=== PATIENT | female | born 2000 | race Caucasian/White ===

== ENCOUNTER 2024-09-01 11:31 | Inpatient (IN) | payer BC, SELFPAY ==
[2024-08-31 20:23] VITALS: BP 121/73
[2024-08-31 20:44] LABS: Urine Character Clear (Clear)
[2024-08-31 20:47] LABS: Hematocrit 38.8 % (37.0-47.0); Hemoglobin 13.0 g/dL (12.0-16.0); Mean Corp Hgb Conc. 33.5 g/dL (33.0-37.0); Mean Corpuscular Volume 89.8 fL (81.0-99.0); Nucleated Red Blood Cells % 0 %; Platelet Count 442 10^3/uL (130-400); Red Cell Dist. Width 14.3 % (11.5-14.5)
[2024-08-31 20:51] LABS: Urine Squamous Cell >30 /LPF (Few)
[2024-08-31 20:59] LABS: ALT (SGPT) 25 U/L (0-35); AST (SGOT) 65 U/L (14-36); Albumin 5.1 g/dl (3.5-5.0); Alkaline Phosphatase 53 U/L (38-126); Blood Urea Nitrogen 13 mg/dl (7-17); Calcium 10.4 mg/dl (8.4-10.2); Carbon Dioxide 25 mmol/L (22-30); Chloride 106 mmol/L (98-107); Glucose 108 mg/dl (70-99); Potassium 5.1 mmol/L (3.5-5.1); Sodium 139 mmol/L (135-145); Total Protein 8.1 g/dl (6.3-8.2); eGFR > 60.00
[2024-08-31 22:40] VITALS: BP 121/71
[2024-08-31 23:00] VITALS: BP 110/80
[2024-08-31] MEDS: ROCEPHIN IV (23:04)
[2024-08-31] MEDS: NSS 2000 ML IV (23:04)
[2024-08-31] MEDS: ZOFRAN 4 MG IV (23:05)
[2024-08-31] MEDS: TORADOL 30 MG IV (23:05)
[2024-08-31 23:29] VITALS: BP 110/53
[2024-08-31 23:40] VITALS: BP 117/77
[2024-08-31] MEDS: ROCEPHIN 1000 MG IV (23:44)
--- NOTE | 2024-08-31 23:48 | ED.GENMED ---
History of Present Illness
General
Chief Complaint: Urinary Symptoms
Source: patient
Time Seen by Provider: 08/31/24 22:24
History of Present Illness
History of Present Illness:
24-year-old female with past medical history of frequent urinary tract infections, currently in the process of being worked up by urology, presenting to the ER for evaluation of urinary frequency/urgency and dysuria, today started develop more
right-sided flank pain, nausea and fevers prompting her to come to the ER for further evaluation. Patient has not been on any antibiotics, notes that she has had multiple imaging studies but with no specific etiolgies found. Patient last took 1 g
of Tylenol at 4 PM which did give her some relief from the fever but states it feels as if the fever started to come back. She notes that she has additional testing scheduled for this coming Wednesday.
Past History
Past History
ED Past Medical History: Other (Frequent urinary tract infections)
ED Past Surgical History: None
Social History
Tobacco: Non-smoker
Alcohol: Occasional
Drug: None
Personal: Single
Living: with family
Review of Systems
Review of Systems
All Other Systems: ROS reviewed and negative except as documented in HPI and ROS
Phy Exam
Physical Exam
Physical Exam:
GENERAL: Alert , in no apparent distress
EYE: clear conjunctiva b/l
HEAD: NCAT
ENT: o/p clr, mmm.
CARDIAC: Regular rate and rhythm .
LUNGS: Clear breath sounds bilaterally, no acute respiratory distress, no wheezes/rales/rhonchi
ABDOMEN: Soft, without focal tenderness, no r/g, mild right-sided CVA tenderness
NEUROLOGICAL: Alert and oriented
SKIN: Warm and dry, skin intact.
MUSCULOSKELETAL: No edema, well perfused.
PSYCH: Normal and appropriate interaction.
Course
Orders/Labs/Results
Orders:
Orders
08/31/24 20:35
CBC/With Diff [Complete Blood Count/With Diff] Urgent
CMP [Comprehensive Metabolic Panel] Urgent
HCG, Serum Qualitative Screen Urgent
Comment: ADD ON
Urinalysis Reflex To Culture Urgent
Date Specimen was Collected: 08/31/24
Time Specimen was Collected: 20:27
Urine Microscopic Reflex Cult Urgent
Urine Culture Urgent
ERMELINDA Source: U
Specimen Description:
Date Specimen was Collected: 08/31/24
Time Specimen was Collected: 20:27
08/31/24 22:41
CefTRIAXone [Rocephin] 1,000 mg IV NOW STA
US Kidneys [US Renal Only W/O Bladder] Urgent
Comment:
Reason For Exam: flank pain, fever, UTI
08/31/24 22:42
0.9% Sodium Chloride 1000 ml [Nss] 2,000 ml IV NOW STA
Ketorolac [Toradol] 30 mg IV NOW STA
Ondansetron Injectable [Zofran] 4 mg IV NOW STA
08/31/24 22:54
Sterile Water [Sterile Water For Injection] 10 ml .ROUTE .[facility]
08/31/24 23:01
Lactic Acid Q4H
Comment: CANCEL 2nd LACTIC ACID IF 1st LACTIC ACID IS LESS THAN 2
Blood Culture Q30M
ERMELINDA Source: Blood/Venous
Specimen Description:
08/31/24 23:02
Blood Culture Q30M
ERMELINDA Source: Blood/Venous
Specimen Description:
08/31/24 23:49
Add On- LAB Urgent
Tests Added?: hcg qual
08/31/24 23:51
Phenazopyridine HCl [Pyridium] 200 mg PO NOW STA
09/01/24 02:45
Lactic Acid Q4H
Comment: CANCEL 2nd LACTIC ACID IF 1st LACTIC ACID IS LESS THAN 2
Abnormal Lab Results
08/31/24
20:35
WBC 17.6 H 10^3/uL
(4.8-10.8)
Plt Count 442 H 10^3/uL
(130-400)
Abs Immat Gran (auto) 0.1 H 10^3/uL
(0-0.05)
Absolute Neuts (auto) 14.6 H 10^3/uL
(1.4-6.5)
Absolute Monos (auto) 1.3 H 10^3/uL
(0.1-0.6)
Neutrophils % 83.0 H %
(42.2-75.2)
Lymphocytes % 8.8 L %
(20.5-51.1)
Glucose 108 H mg/dl
(70-99)
Calcium 10.4 H mg/dl
(8.4-10.2)
AST 65 H U/L
(14-36)
Albumin 5.1 H g/dl
(3.5-5.0)
Leukocyte Esterase Rfl 1+ A
(Negative)
Urine RBC 3-6 A /HPF
(0-2)
Urine Bacteria (Reflex) Few A
(Negative)
08/31/24 20:35
08/31/24 20:35
Vital Signs
Initial and Last Documented VS:
Initial Vital Signs
Temp Pulse Resp BP Pulse Ox
100.4 F H 102 15 121/73 96
08/31/24 20:23 08/31/24 20:23 08/31/24 20:23 08/31/24 20:23 08/31/24 20:23
Last Documented Vital Signs
Temp Pulse Resp BP Pulse Ox
102.5 F H 105 18 110/80 100
08/31/24 22:40 08/31/24 23:00 08/31/24 23:00 08/31/24 23:00 08/31/24 23:49
MDM/Problems Addressed
Differential Diagnosis Includes:
- Pyelonephritis
- Cystitis
- Interstitial cystitis
- PID
- STI
-
- Appendicitis
- Renal/ureteral colic-
MDM/Problems Addressed:
24-year-old female presenting to the ER for evaluation of right-sided flank pain accompanied with urinary symptoms. History of similar urinary tract infections in the past. Currently being worked up as an outpatient by urology. Patient arrives to
the ER febrile. Labs and urine were initiated on arrival which show significant leukocytosis with leftward shift. Normal renal function. Negative test. Urine with 1+ leuks but only 3-5 WBCs. Patient has had multiple CT scans, would
like to avoid further radiation so will obtain ultrasound to evaluate for any hydronephrosis or any proximal stones. Will initiate patient on IV Rocephin. Plan for admission
Chronic conditions affecting care: Other (1 urinary tract infections)
Acute Exacerbation and/or Progression of Chronic Illness: Other (Frequent UTI)
*Radiology
Radiology exam reviewed: radiology read reviewed
*Pulse Oximetry
SaO2: 100
Oxygen Mode of Delivery: Room air
Patient hypoxic: no
*Critical Care Note
Total Time (30-74mins, 75-104mins- exclusive of procedures): Not Applicable
Patient Management
Discussion with other providers: Hospitalist
Escalation/DeEscalation of care consider admission/obs:
Ultrasound without any significant findings. Hospitalist team notified and accepts for continued evaluation and treatment. Patient does appear improved following medications provided.
ED Attending Note
-
Portions of this chart may have been created with voice recognition software.� Occasional wrong word or��sound alike� substitutions may have occurred due to the inherent limitations of voice recognition software.
Discharge Plan
Departure
Patient Disposition: Admit
Date of Disposition: 08/31/24
Time of Disposition: 23:48
Presentation/result/management discussed w/ accepting MD/DO: Hospitalist
Discharge Problem:
Pyelonephritis
Prescriptions:
No Action
spironolactone 50 mg Tablet
50 mg PO DAILY
Rinvoq 30 mg Tablet Extended Release 24 Hr
30 mg PO DAILY
Interventions
Interventions:
*Risk Screen - Suicide Last Done: 08/31/24 20:23
*General Assessment Last Done: 08/31/24 20:23
*Neglect/Abuse Screening Last Done: 08/31/24 20:23
*ED COVID-19 Vaccine History Last Done: 08/31/24 20:23
Discharge Date and Time
Print Language: ARMENIAN
[2024-09-01] VITALS (8 sets, daily range): BP systolic 92–131; BP diastolic 49–84; BMI 21.1
[2024-09-01 00:27] LABS: HCG, Serum Qualitative Screen Negative
--- NOTE | 2024-09-01 01:34 | HPS.HSE ---
Family Physician
-
Family Physician:
Chief Complaint
-
Urinary Frequency, Flank Pain, Fevers / Chills
History of Present Illness
Patient is a 24y F with PMH significant for ulcerative colitis who presents to ED complaining of R flank discomfort, urinary frequency / urgency and fevers / chills. Patient states that she has had frequent UTIs over the past year or so. She
has been evaluated extensively at [facility] including prior CT Urogram, cystoscopy, etc. Reportedly no clear etiology was discovered. Patient states that she always has R flank discomfort. This tends to wax and wane and seems related to urinary habits
(worse if she is 'holding it in', etc).
Patient notes that she developed shaking chills, sweats, fevers and nausea around 11AM today. Her R flank pain significantly increased.
These symptoms persisted throughout the day and she presented to the ED for further evaluation.
Patient describes constant burning in the genital area - not solely with urination. She reports frequent urge to urinate with only small volume urination.
Patient notes that she is scheduled to see Dr. Schaffer next week for further evaluation.
Medical History
Past Medical History
Past Medical History: Reports Other
Additional Past Medical History:
Ulcerative Colitis
PCOS
Past Surgical History: Reports None
Social History
Tobacco: Vaping (Occasional smoker / vape use.)
Alcohol: Occasional
Drug: None
Family History
Family History: Other (Uncle with renal failure.)
Allergies / Home Medications
Allergies reflects when Allergies were last updated in [employer] [facility].
Home Medications with original date entered in [employer] [facility]
Allergy/Medication List:
Allergies
Allergy/AdvReac Type Severity Reaction Status Date / Time
Iodinated Contrast Media Allergy Intermediate Hives Verified 08/31/24 20:27
Home Medications
spironolactone 50 mg tablet 50 mg PO DAILY 08/31/24
upadacitinib 30 mg tablet,extended release 24 hr (Rinvoq) 30 mg PO DAILY 08/31/24
Review of Systems
-
History Source: Patient
A 12 point ROS was completed and negative except as noted: Yes
Constitutional: Reports Fever, Fatigue and Chills
EENT: Denies Sore Throat
Respiratory: Denies Cough or Trouble Breathing
Cardiac: Denies Chest Pain or Palpitations
Abdomen/GI: Reports Nausea; Denies Abdominal Pain, Vomiting, Diarrhea, Constipated, Bloody Stools, Black Stools or Anorexia
: Reports Dysuria, Frequency, Flank Pain and Urgency; Denies Bleeding, Dark Urine or Discharge
Musculoskeletal: Denies Joint Pain or Edema
Neurological: Denies Dizzy or Headache
Physical Exam
Vital Signs
Vital Signs
Temp Pulse Resp BP Pulse Ox
102.5 F H 105 18 115/72 98
08/31/24 22:40 08/31/24 23:00 09/01/24 00:00 09/01/24 00:00 09/01/24 00:00
Physical Exam
General: Other (24y F in no distress.)
HEENT: Moist mucous membranes and PERRLA
Respiratory: Clear; No Wheezes, Rales or Rhonchi
Cardiac: S1/S2 and Regular Rhythm; No Murmur
GI: Soft, Non Tender, Non Distended and Normal Bowel Sounds
Genito-urinary: No costovertebral tender
Musculoskeletal: No Clubbing, No Cyanosis and No Edema
Neuro: AO x 3
Laboratory Results
-
08/31/24 20:35
08/31/24 20:35
Laboratory Results
Lactic Acid Cancelled 09/01/24 02:45
Total Bilirubin 0.4 mg/dl (0.2-1.3) 08/31/24 20:35
AST 65 U/L (14-36) H 08/31/24 20:35
ALT 25 U/L (0-35) 08/31/24 20:35
Alkaline Phosphatase 53 U/L (38-126) 08/31/24 20:35
Impression/Plan
-
A/P: Patient is a 24y F with PMH significant for UC who presents to ED complaining of fevers / chills, 'urinary symptoms' since this AM.
Febrile Illness / Sepsis
- Admit for further evaluation and treatment.
- Patient presents with fever, tachycardia, tachypnea and leukocytosis.
- Source / underlying etiology is not clear at this time.
- R flank discomfort, but no CVAT.
- UA not suggestive of active infection despite symptoms.
- Notes genital burning constantly - not only with urination.
- Continue IV ceftriaxone pending culture data / further evaluation.
- US done in the ED unremarkable with no abnormal appearance of the kidneys.
- Follow-up culture data. Check GC/chlamydia
- Send to [facility] for records.
- ID evaluation for additional recommendations.
Ulcerative Colitis
- Stable with no recent diarrhea, bloody / mucousy stools, etc.
- Hold Rinvoq acutely pending infectious work-up.
- ? if chronic pain symptoms, etc may be due to UC inflammation / changes?
- Check ESR. Consider additional abdominal imaging (though reportedly has had multiple imaging studies done within the past year).
- Send to [facility] for records as noted above.
PCOS
- Stable. Hold spironolactone acutely.
DVT Prophylaxis: Lovenox
Code Status: Full
[2024-09-01] MEDS: TYLENOL 650 MG PO ×2 (02:59→16:40)
[2024-09-01] MEDS: NSS 1000 IV ×3 (02:59→18:20)
--- NOTE | 2024-09-01 03:33 | PTCARENOTE ---
Patient arrived from the ED via stretcher at approximately 0245. Patient ambulated self from stretcher to bed - gait steady. Patient AAOx3. VSS as documented. Assessment as documented. Patient oriented to room. Bed in lowest position. Call patricio
within reach.
[2024-09-01] MEDS: COMPAZINE 5 MG IV (05:57)
[2024-09-01] MEDS: TORADOL 10 MG IV (05:57)
[2024-09-01 07:24] LABS: Hematocrit 34.7 % (37.0-47.0); Hemoglobin 11.6 g/dL (12.0-16.0); Mean Corp Hgb Conc. 33.4 g/dL (33.0-37.0); Mean Corpuscular Volume 89.2 fL (81.0-99.0); Platelet Count 407 10^3/uL (130-400); Red Cell Dist. Width 14.5 % (11.5-14.5)
[2024-09-01 08:00] LABS: Blood Urea Nitrogen 8 mg/dl (7-17); Calcium 9.0 mg/dl (8.4-10.2); Carbon Dioxide 19 mmol/L (22-30); Chloride 110 mmol/L (98-107); Estimated Creatinine Clearance > 125 ml/min; Glucose 138 mg/dl (70-99); Potassium 3.7 mmol/L (3.5-5.1); Sodium 138 mmol/L (135-145); eGFR > 60.00
--- NOTE | 2024-09-01 10:39 | CON.ID ---
Consultation
-
Date/Time Consultation Requested: 09/01/24 0248
Date/Time Consultation Performed: 09/01/2024 1016
Requesting Provider: Dr. Pringle
Performing Provider: Dr. Ni
Reason for Consultation: Urinary tract infection
Chief Complaint / Past History
History of Present Illness
Sarah Sanchez is a 24-year-old female being evaluated at the request of Dr. Pringle in regards to urinary tract infection/dysuria. History is obtained from chart review, along with patient interview.
The patient reports that over the past year she has been having recurrent urinary tract infections and has had significant workup at [facility]. Most recently, she was seen in her urologist office approximately 1 month ago, and reports UA findings
suggested UTI and she was prescribed Macrodantin, but did not fill it.
She reports approximately 48 hours of increasing dysuria, burning and urgency. She notes yesterday at approximately 11 AM she developed a fever to 103 degrees. Additionally, she notes some ongoing right flank discomfort, but that has been
persistent for the past year. She notes that she was scheduled to be evaluated by Dr. Schaffer next week.
Currently she admits to some headache. She denies any nausea, vomiting or diarrhea. She notes urinary burning is constant.
No significant travel history.
Past History
Additional Past Medical History:
Acne (on spironolactone)
Recurrent urinary tract infections
Ulcerative colitis (on Rinvoq)
Additional Past Surgical History:
D&C
Allergy History:
Iodinated Contrast Media Allergy (Intermediate, Verified 08/31/24 20:27)
Hives
Medications Reviewed: Yes
Current Antibiotics:
Ceftriaxone 1 g IV every 24 hours
Social History
Tobacco: Other (Occasional)
Alcohol: Occasional
Drug: None
Personal: Single (Has boyfriend)
Living: With Family
Employment: Employed
Family History
Family History: Not Pertinent
Review of Systems
Vital Signs
Temp Pulse Resp BP Pulse Ox
98.9 F 81 20 92/49 95
09/01/24 07:05 09/01/24 07:05 09/01/24 07:05 09/01/24 07:05 09/01/24 07:05
Physical Exam
Physical Exam
Constitutional: No Acute Distress, Comfortable and Non-toxic
Eyes: Pupils Equal, Pupils Round, No Conjunctival Hemorrhage and Sclera Anicteric
Oral: No Thrush and No Ulcers
Cardiovascular: Regular Rate and S1/S2; Negative S3/S4
Pulmonary: Clear; Negative Wheezes, Rales or Rhonchi
Gastrointestinal: Soft, Non Tender, Non Distended, Normal Bowel Sounds, No Rebound and No Guarding
Genito-Urinary: Negative Alexander or CVA Tenderness
Extremities: Negative Edema, Cyanosis or Erythema
Skin: Warm and Dry; Negative Rash or Jaundice
Neurological: Awake and Alert
Psychological: Calm
Lab / Diagnostic Study Results
09/01/24 07:04
09/01/24 07:04
Abs Immat Gran (auto) 0.1 10^3/uL (0-0.05) H 08/31/24 20:35
Absolute Neuts (auto) 14.6 10^3/uL (1.4-6.5) H 08/31/24 20:35
Absolute Lymphs (auto) 1.6 10^3/uL (1.2-3.4) 08/31/24 20:35
Absolute Monos (auto) 1.3 10^3/uL (0.1-0.6) H 08/31/24 20:35
Absolute Basos (auto) 0.0 10^3/uL (0-0.2) 08/31/24 20:35
Immature Gran % 0.5 % (0-0.5) 08/31/24 20:35
Neutrophils % 83.0 % (42.2-75.2) H 08/31/24 20:35
Lymphocytes % 8.8 % (20.5-51.1) L 08/31/24 20:35
Monocytes % 7.2 % (1.7-9.3) 08/31/24 20:35
Eosinophils % 0.3 % (0-6) 08/31/24 20:35
Basophils % 0.2 % (0-2) 08/31/24 20:35
ESR 6 mm/hour (0-20) 09/01/24 07:04
Lactic Acid Cancelled 09/01/24 02:45
Ur Squamous Epith Cells >30 /LPF (Few) 08/31/24 20:35
Microbiology Results
Micro:
09/01/24 20:35 Chlamydia trachomatis (PCR) - Final
Urine Neisseria gonorrhoeae (PCR) - Final
08/31/24 23:01 Blood Culture - Pending
Blood/Venous
08/31/24 23:02 Blood Culture - Pending
Blood/Venous
08/31/24 20:35 Urine Culture - Pending
Urine
Imaging:
08/31/2024 Renal ultrasound: No hydronephrosis. No evidence of renal calculus.
Assessment / Plan
Dysuria with hx recurrent UTI
Leukocytosis
Fever
Hx ulcerative colitis
Recommendations:
Continue with empiric ceftriaxone for the present.
Await urine culture.
Follow white count and temperature curve.
Follow for clinical improvement.
Further recommendations as additional data is returned.
--- NOTE | 2024-09-01 10:40 | W.PN.HOSP.TC ---
Addendum entered and electronically signed by Prashant Munoz MD 09/01/24 11:09:
abdomen US meant for outpatient in 3months
Original Note:
Today's Communication/Plan
-
Monitor vital signs see plan
Abdominal ultrasound
Follow fever curve
ID evaluation
Continue with ceftriaxone for now
Follow cultures
Procal
Nonbillable note
Assessment / Plan
Assessment / Plan
General: No acute distress
HEENT: Moist mucous membranes and PERRLA
Respiratory: Clear; No Wheezes, Rales or Rhonchi
Cardiac: S1/S2 and Regular Rhythm; No Murmur
GI: Soft, Non Tender, Non Distended and Normal Bowel Sounds
Genito-urinary: No costovertebral tender
Musculoskeletal: No Edema
Neuro: AO x 3
Febrile Illness / Sepsis
- Patient presents with fever, tachycardia, tachypnea and leukocytosis.
- Source / underlying etiology is not clear at this time.
- R flank discomfort, but no CVAT.
- UA not suggestive of active infection despite symptoms. Has seen urology outpatient. Scheduled for urodynamic study
- Notes genital burning constantly - not only with urination. has seen services engineer outpt
- Continue IV ceftriaxone pending culture data / further evaluation.
- US done in the ED unremarkable with no abnormal appearance of the kidneys. Does show gallbladder polyp, check abdominal ultrasound.
- Follow-up culture data. Check GC/chlamydia neg
- awaiting records from [facility]
- ID evaluation for additional recommendations
No cough, shortness of breath
check procal
consider CT abd/pelvis if sx dont improve
Ulcerative Colitis
- Stable with no recent diarrhea, bloody / mucousy stools, etc.
- Hold Rinvoq acutely pending infectious work-up. Rinvoq can also be associated with fever and urinary symptoms
- ? if chronic pain symptoms, etc may be due to UC inflammation / changes?
- Check ESR wnl. Consider additional abdominal imaging (though reportedly has had multiple imaging studies done within the past year).
- Send to [facility] for records as noted above.
PCOS
- Stable. Hold spironolactone acutely.
DVT Prophylaxis: Lovenox
Code Status: Full
Anticipated Discharge: 24 - 48 hours
Subjective/Interval History
-
Date of Service: September 01, 2024
Denies pain
Objective Data
-
Labs:
Laboratory Results
09/01/24
07:04
WBC 14.7 H
Hgb 11.6 L
Hct 34.7 L
Plt Count 407 H
Sodium 138
Potassium 3.7 D
Chloride 110 H
Carbon Dioxide 19 L
BUN 8
Creatinine 0.6
Glucose 138 H
Calcium 9.0
Vital Signs:
Vital Signs
Temp Pulse Resp BP Pulse Ox
98.9 F 81 20 92/49 95
09/01/24 07:05 09/01/24 07:05 09/01/24 07:05 09/01/24 07:05 09/01/24 07:05
I&O
08/31/24 09/01/24 09/02/24
06:59 06:59 06:59
Intake Total 2640 / 2640
Balance 2640 / 2640
[2024-09-01 13:20] LABS: Procalcitonin 0.05 ng/ml (0.0-0.25)
--- NOTE | 2024-09-01 13:49 | CM ---
Reviewed the chart notes and spoke with the patient at the bedside. The patient resides with her mother in a two story home with no steps to enter. The patient reports no DME/VN/SNF in the past. Patient confirmed her pharmacy of choice is [facility]. CM continues to be available to patient/family and is monitoring medical plan for needs at discharge.
Plan: Discharge to home when medically stable. No needs anticipated.
[2024-09-01 19:41] LABS: COVID-19 Antigen Negative (Negative)
[2024-09-01] MEDS: STERILE WATER FOR INJECTION 10 ML IV (21:20)
[2024-09-01] MEDS: ROCEPHIN 1000 MG IV (21:21)
[2024-09-01] MEDS: FLUSH (NSS) 2 FLUSH IV (21:21)
[2024-09-02] MEDS: NSS 1000 IV ×2 (03:19→11:22)
[2024-09-02 07:48] VITALS: BP 112/70
[2024-09-02] MEDS: TYLENOL 650 MG PO (07:57)
[2024-09-02 08:06] LABS: Hematocrit 35.4 % (37.0-47.0); Hemoglobin 11.7 g/dL (12.0-16.0); Mean Corp Hgb Conc. 33.1 g/dL (33.0-37.0); Mean Corpuscular Volume 90.1 fL (81.0-99.0); Nucleated Red Blood Cells % 0 %; Platelet Count 407 10^3/uL (130-400); Red Cell Dist. Width 14.7 % (11.5-14.5)
[2024-09-02 08:40] LABS: ALT (SGPT) 61 U/L (0-35); AST (SGOT) 90 U/L (14-36); Albumin 4.0 g/dl (3.5-5.0); Alkaline Phosphatase 65 U/L (38-126); Blood Urea Nitrogen 3 mg/dl (7-17); Calcium 9.1 mg/dl (8.4-10.2); Carbon Dioxide 21 mmol/L (22-30); Chloride 110 mmol/L (98-107); Estimated Creatinine Clearance > 125 ml/min; Glucose 122 mg/dl (70-99); Potassium 4.0 mmol/L (3.5-5.1); Sodium 138 mmol/L (135-145); Total Protein 6.6 g/dl (6.3-8.2); eGFR > 60.00
--- NOTE | 2024-09-02 10:27 | W.PN.ID1 ---
Date of Service
Date of Service: September 02, 2024
Today's Communication
Continue ceftriaxone for today.
Assessment / Plan
Dysuria with hx recurrent UTI
Leukocytosis
Fever
Hx ulcerative colitis
Recommendations:
Rapid strep negative. Streptococcus pharyngeal culture pending.
Blood parasite testing negative. Urinary GC and Chlamydia negative. Blood cultures negative x 24 hours. Urine culture contaminated, but no significant pyuria noted.
Continue with empiric ceftriaxone for the present.
Check monoscreen
Follow white count and temperature curve.
Follow for clinical improvement.
����������������������������������������������������������
Chief Complaint
-: Fever, Leukocytosis and UTI
Subjective / Review of Systems
Patient seen and examined. Reports feeling improved today. Less urinary symptoms. Fevers noted yesterday, though.
Vital Signs / Physical Exam
Vital Signs
Vital Signs
Temp Pulse Resp BP Pulse Ox
98.8 F 80 17 112/70 98
09/02/24 07:48 09/02/24 07:48 09/01/24 23:34 09/02/24 07:48 09/02/24 07:48
Physical Exam
Constitutional: No Acute Distress, Comfortable and Non-toxic
Eyes: No Conjunctival Hemorrhage and Sclera Anicteric
Oropharyngeal: Other (Whitish plaques on tonsils.)
Cardiovascular: S1/S2; Negative S3/S4 or Murmur
Pulmonary: Non Labored
Gastrointestinal: Soft, Non Tender and Non Distended
Musculoskeletal: Negative Joint Effusion
Skin: Negative Jaundice
Neurological: Awake and Alert
Psychological: Calm
Objective Data
Lab Data
Lab Results
09/02/24 07:49
09/02/24 07:49
ESR 6 mm/hour (0-20) 09/01/24 07:04
Estimated Creat Clear > 125 ml/min 09/02/24 07:49
Lactic Acid Cancelled 09/01/24 02:45
Total Bilirubin 0.5 mg/dl (0.2-1.3) 09/02/24 07:49
AST 90 U/L (14-36) H 09/02/24 07:49
ALT 61 U/L (0-35) H 09/02/24 07:49
Alkaline Phosphatase 65 U/L (38-126) 09/02/24 07:49
Most recent labs reviewed.
Micro Results:
08/31/24 20:35 Urine Culture - Final
Urine
08/31/24 23:01 Blood Culture - Preliminary
Blood/Venous No Growth in 24 hours- Final report to follow
08/31/24 23:02 Blood Culture - Preliminary
Blood/Venous No Growth in 24 hours- Final report to follow
09/01/24 15:58 Streptococcus Screen (ERMELINDA) - Pending
Throat/Pharynx Streptococcus Rapid Screen - Final
Rapid Strep Screen (Group A) Negative
09/01/24 11:02 Blood Parasites Smear - Preliminary
Blood/Venous
09/01/24 20:35 Chlamydia trachomatis (PCR) - Final
Urine Neisseria gonorrhoeae (PCR) - Final
Imaging:
08/31/2024 Renal ultrasound: No hydronephrosis. No evidence of renal calculus.
--- NOTE | 2024-09-02 10:30 | W.PN.HOSP.TC ---
Addendum entered and electronically signed by Prashant Munoz MD 09/02/24 12:04:
Monoscreen pending
Original Note:
Today's Communication/Plan
-
Monitor vital signs see plan
Continue antibiotics
Pending culture
follow fever curve
Discussed with mother at bedside
Assessment / Plan
Assessment / Plan
General: No acute distress
HEENT: Moist mucous membranes and PERRLA, mild white spots on tonsils likely stones
Respiratory: Clear; No Wheezes, Rales or Rhonchi
Cardiac: S1/S2 and Regular Rhythm; No Murmur
GI: Soft, Non Tender, Non Distended and Normal Bowel Sounds
Genito-urinary: No costovertebral tender
Musculoskeletal: No Edema
Neuro: AO x 3
Febrile Illness / Sepsis
- Patient presents with fever, tachycardia, tachypnea and leukocytosis.
- Source / underlying etiology is not clear at this time.
- R flank discomfort, but no CVAT.
- UA not suggestive of active infection despite symptoms. Has seen urology outpatient. Scheduled for urodynamic study
- Notes genital burning constantly - not only with urination. has seen tool operator outpt
- Continue IV ceftriaxone pending culture data / further evaluation.
- US done in the ED unremarkable with no abnormal appearance of the kidneys. Does show gallbladder polyp, check abdominal ultrasound in 3 months with pcp
- Follow-up culture data. GC/chlamydia neg
- awaiting records from [facility]
- ID following; follow fever curve
No cough, shortness of breath
procal neg
appears does have white spots on tonsils that could be tonsil stones which she has hx of
Blood parasite preliminary negative so far
Rapid strep, COVID-negative
Does have a headache and mild neck discomfort. No nuchal rigidity.
Ulcerative Colitis
- Stable with no recent diarrhea, bloody / mucousy stools, etc.
- Hold Rinvoq acutely pending infectious work-up. Rinvoq can also be associated with fever and urinary symptoms. Advised patient to follow-up with her outpatient UC physician at [facility] outpatient
- ? if chronic pain symptoms, etc may be due to UC inflammation / changes?
- Check ESR wnl. Consider additional abdominal imaging (though reportedly has had multiple imaging studies done within the past year).
- Send to [facility] for records as noted above.
PCOS
- Stable. Hold spironolactone acutely.
DVT Prophylaxis: Lovenox
Code Status: Full
I spent a total of 52 minutes with the patient or on the floor. More than 50% of this time involved counseling and coordination of care.
Anticipated Discharge: Within 24 hours
Subjective/Interval History
-
Date of Service: September 02, 2024
fever yesterday
Objective Data
-
Labs:
Laboratory Results
09/02/24
07:49
WBC 11.8 H
Hgb 11.7 L
Hct 35.4 L
Plt Count 407 H
Sodium 138
Potassium 4.0
Chloride 110 H
Carbon Dioxide 21 L
BUN 3 L
Creatinine 0.6
Glucose 122 H
Calcium 9.1
Total Bilirubin 0.5
AST 90 H
ALT 61 H
Alkaline Phosphatase 65
Vital Signs:
Vital Signs
Temp Pulse Resp BP Pulse Ox
98.8 F 80 17 112/70 98
09/02/24 07:48 09/02/24 07:48 09/01/24 23:34 09/02/24 07:48 09/02/24 07:48
I&O
09/01/24 09/02/24 09/03/24
06:59 06:59 06:59
Intake Total 2640 / 2640 3500 / 3500
Balance 2640 / 2640 3500 / 3500
[2024-09-02 15:10] VITALS: BP 109/73
[2024-09-02] MEDS: ROCEPHIN 1000 MG IV (22:00)
[2024-09-02] MEDS: STERILE WATER FOR INJECTION 10 ML IV (22:01)
[2024-09-02] MEDS: FLUSH (NSS) 2 FLUSH IV (22:03)
[2024-09-02 23:13] VITALS: BP 119/79
[2024-09-03 01:51] LABS: Urine Character Clear (Clear)
[2024-09-03 05:15] LABS: Hematocrit 35.1 % (37.0-47.0); Hemoglobin 11.5 g/dL (12.0-16.0); Mean Corp Hgb Conc. 32.8 g/dL (33.0-37.0); Mean Corpuscular Volume 89.3 fL (81.0-99.0); Nucleated Red Blood Cells % 0 %; Platelet Count 384 10^3/uL (130-400); Red Cell Dist. Width 14.6 % (11.5-14.5)
[2024-09-03] MEDS: TYLENOL 650 MG PO (05:27)
[2024-09-03 05:37] LABS: ALT (SGPT) 83 U/L (0-35); AST (SGOT) 133 U/L (14-36); Albumin 3.9 g/dl (3.5-5.0); Alkaline Phosphatase 66 U/L (38-126); Blood Urea Nitrogen 7 mg/dl (7-17); Calcium 9.3 mg/dl (8.4-10.2); Carbon Dioxide 23 mmol/L (22-30); Chloride 108 mmol/L (98-107); Estimated Creatinine Clearance > 125 ml/min; Glucose 103 mg/dl (70-99); Potassium 4.1 mmol/L (3.5-5.1); Sodium 139 mmol/L (135-145); Total Protein 6.5 g/dl (6.3-8.2); eGFR > 60.00
[2024-09-03 07:53] VITALS: BP 104/60
--- NOTE | 2024-09-03 09:13 | W.PN.ID1 ---
Date of Service
Date of Service: September 03, 2024
Today's Communication
Transition to oral cefdinir.
Assessment / Plan
Dysuria with hx recurrent UTI
Leukocytosis
Fever
Hx ulcerative colitis
Recommendations:
Rapid strep negative. Streptococcus pharyngeal culture pending.
Blood parasite testing negative.
Urinary GC and Chlamydia negative.
Blood cultures negative x 48 hours.
Urine culture contaminated, but no significant pyuria noted. Repeat UA likewise negative
Monoscreen negative
Transition ceftriaxone to oral cefdinir for an additional 5 days, although not clear whether antibiotics are playing any role here.
Patient to be seen by Urology this week.
����������������������������������������������������������
Chief Complaint
-: Fever, Leukocytosis and UTI
Subjective / Review of Systems
Patient seen and examined. Reports feeling improved. Dysuria described as 'mild'
Vital Signs / Physical Exam
Vital Signs
Vital Signs
Temp Pulse Resp BP Pulse Ox
97.9 F 56 16 104/60 100
09/03/24 07:53 09/03/24 07:53 09/03/24 07:53 09/03/24 07:53 09/03/24 07:53
Physical Exam
Constitutional: No Acute Distress, Well Developed, Comfortable and Non-toxic
Eyes: Sclera Anicteric
Cardiovascular: S1/S2; Negative S3/S4
Pulmonary: Non Labored
Gastrointestinal: Soft and Non Tender
Neurological: Awake and Alert
Psychological: Calm
Objective Data
Lab Data
Lab Results
09/03/24 04:56
09/03/24 04:56
ESR 6 mm/hour (0-20) 09/01/24 07:04
Estimated Creat Clear > 125 ml/min 09/03/24 04:56
Lactic Acid Cancelled 09/01/24 02:45
Total Bilirubin 0.3 mg/dl (0.2-1.3) 09/03/24 04:56
AST 133 U/L (14-36) H 09/03/24 04:56
ALT 83 U/L (0-35) H 09/03/24 04:56
Alkaline Phosphatase 66 U/L (38-126) 09/03/24 04:56
Most recent labs reviewed.
Micro Results:
08/31/24 23:01 Blood Culture - Preliminary
Blood/Venous No Growth in 48 hours- Final report to follow
08/31/24 23:02 Blood Culture - Preliminary
Blood/Venous No Growth in 48 hours- Final report to follow
09/01/24 11:02 Blood Parasites Smear - Final
Blood/Venous
09/01/24 15:58 Streptococcus Screen (ERMELINDA) - Preliminary
Throat/Pharynx Culture in Progress
Streptococcus Rapid Screen - Final
Rapid Strep Screen (Group A) Negative
08/31/24 20:35 Urine Culture - Final
Urine
09/01/24 20:35 Chlamydia trachomatis (PCR) - Final
Urine Neisseria gonorrhoeae (PCR) - Final
Imaging:
08/31/2024 Renal ultrasound: No hydronephrosis. No evidence of renal calculus.
Care Review
Plan reviewed with: Physician (Hospitalist)
--- NOTE | 2024-09-03 10:40 | W.PN.HOSP.TC ---
Today's Communication/Plan
-
Monitor vital signs
see plan
Discharge today on p.o. antibiotics
Discussed with mother at bedside
Time of discharge 38 minutes
Assessment / Plan
Assessment / Plan
General: No acute distress
HEENT: Moist mucous membranes and PERRLA, mild white spots on tonsils likely stones
Respiratory: Clear; No Wheezes, Rales or Rhonchi
Cardiac: S1/S2 and Regular Rhythm; No Murmur
GI: Soft, Non Tender, Non Distended and Normal Bowel Sounds
Genito-urinary: No costovertebral tender
Musculoskeletal: No Edema
Neuro: AO x 3
Febrile Illness / Sepsis
- Patient presents with fever, tachycardia, tachypnea and leukocytosis.
- Source / underlying etiology is not clear at this time. However, given dysuria with history of recurrent UTI will treat with cefdinir
- R flank discomfort, but no CVAT.
- UA not suggestive of active infection despite symptoms. Has seen urology outpatient. Scheduled for urodynamic study
- Notes genital burning constantly - not only with urination. has seen ob/gyn physician outpt
- Although culture so far has been negative. Discussed infectious disease. Will discharge on oral cefdinir for 5 more days
- US done in the ED unremarkable with no abnormal appearance of the kidneys. Does show gallbladder polyp, check abdominal ultrasound in 3 months with pcp
- Follow-up culture data. GC/chlamydia neg
- awaiting records from [facility]
- ID following; follow fever curve
No cough, shortness of breath
procal neg
appears does have white spots on tonsils that could be tonsil stones which she has hx of. Monoscreen negative
Blood parasite preliminary negative so far
Rapid strep, COVID-negative
Does have a headache and mild neck discomfort. No nuchal rigidity.
Ulcerative Colitis
- Stable with no recent diarrhea, bloody / mucousy stools, etc.
- Hold Rinvoq acutely pending infectious work-up. Rinvoq can also be associated with fever and urinary symptoms. Advised patient to follow-up with her outpatient UC physician at [facility] outpatient
- ? if chronic pain symptoms, etc may be due to UC inflammation / changes?
- Check ESR wnl. Consider additional abdominal imaging (though reportedly has had multiple imaging studies done within the past year).
- Send to [facility] for records as noted above.
Elevated LFTs
Could likely be secondary to medications or underlying possible viral infection
Patient denies any abdominal pain
CMP outpatient with primary care provider
PCOS
- Stable. Hold spironolactone acutely.
DVT Prophylaxis: Lovenox
Code Status: Full
Anticipated Discharge: Today
Subjective/Interval History
-
Date of Service: September 03, 2024
Denies pain
Objective Data
-
Labs:
Laboratory Results
09/03/24
04:56
WBC 7.4
Hgb 11.5 L
Hct 35.1 L
Plt Count 384
Sodium 139
Potassium 4.1
Chloride 108 H
Carbon Dioxide 23
BUN 7
Creatinine 0.6
Glucose 103 H
Calcium 9.3
Total Bilirubin 0.3
AST 133 H
ALT 83 H
Alkaline Phosphatase 66
Vital Signs:
Vital Signs
Temp Pulse Resp BP Pulse Ox
97.9 F 56 16 104/60 100
09/03/24 07:53 09/03/24 07:53 09/03/24 07:53 09/03/24 07:53 09/03/24 07:53
I&O
09/02/24 09/03/24 09/04/24
06:59 06:59 06:59
Intake Total 3500 / 3500 960 / 960
Balance 3500 / 3500 960 / 960
--- NOTE | 2024-09-03 10:49 | W.DCSUMMARY ---
Discharge Summary
Discharge Data
Date of Admission: 09/01/24
Date of Discharge: 09/03/24
-
Pending Results: Yes
Hospital Course
24-year-old female with history of ulcerative colitis, PCOS, multiple UTIs came to the hospital with persistent fever. Patient did have signs of sepsis on this admission. She did had right flank discomfort however urinalysis and renal ultrasound
was not suggestive of any active infection. Patient was seen by infectious disease throughout hospitalization. Initially she was on IV antibiotic which was later transitioned to oral to complete the course on discharge. Renal ultrasound also
showed incidental finding of gallbladder polyp for which patient was instructed to get an abdominal ultrasound in 3 months with primary care provider. Rapid strep, COVID, monoscreen were all negative. Final strep culture however was pending for
which patient instructed to follow-up with PCP outpatient. It appeared that patient fever could also be from viral etiology. She did had mild LFT elevation for which she was instructed to follow-up closely with PCP outpatient and to get repeat
CMP. She did not had any abdominal pain. Regarding her Rinvoq which she takes for ulcerative colitis, she was instructed to follow-up with her outpatient physician soon regarding this medication being cause of her multiple UTI. Once her symptoms
continue to improve and she had no further fever, she was then discharged home with instructions to follow-up with all her physicians outpatient.
Discharge Plan
-
Patient Disposition: Home (Routine Discharge)
Discharge Diagnosis/Procedures: SIRS
Leukocytosis
Fever
Dysuria with history of recurrent UTI
Elevated LFTs
Gallbladder polyp
Diet: As tolerated
Activity: As tolerated
Driving Restrictions: As prior to admission
Bathing Restrictions: None
Blood Work: CMP next week with primary care provider
Others Tests: check abdominal ultrasound in 3 months with pcp
Activity Restrictions/Additional Instructions:
Follow-up with your ulcerative colitis physician soon as possible
Referrals:
UNKNOWN - PT DOES,NOT KNOW [Family Provider] - in less than 1 week
Prescriptions:
New
acetaminophen 325 mg Tablet
650 mg PO Q4HPRN PRN (Reason: Mild Pain / Temp > 101) Qty: 0 0RF
cefdinir 300 mg Capsule
300 mg PO Q12 Qty: 10 0RF
Continued
spironolactone 50 mg Tablet
50 mg PO DAILY
Rinvoq 30 mg Tablet Extended Release 24 Hr
30 mg PO DAILY
Discharge Orders:
Discharge Patient (As Directed); Ordered 09/03/24
Ordered By: Prashant Munoz
Discharge Date and Time
Discharge Date/Time: 09/03/24 11:39
Print Language: UPPER SORBIAN
== END 2024-09-03 11:39 | disposition home or self-care (01) | DRG 690 ==
LOC: 2 NORTH 11:31
PROVIDERS: Nurse Practitioner Family; Physician Assistant Medical; Student in an Organized Health Care Education/Training Program; ADMITTING PHYSICIAN Hospitalist; ATTENDING PHYSICIAN Internal Medicine; CONSULT PHYSICIAN Internal Medicine Infectious Disease; EMERGENCY PHYSICIAN Student in an Organized Health Care Education/Training Program
DX: N12 Tubulo-interstitial nephritis, not specified as acute or chronic (principal); K51.90 Ulcerative colitis, unspecified, without complications; E28.2 Polycystic ovarian syndrome; Z87.440 Personal history of urinary (tract) infections; K82.4 Cholesterolosis of gallbladder; Z11.52 Encounter for screening for COVID-19
CPT/HCPCS: 76775; 80048; 80053; 81003; 81015; 83605; 84145; 84703; 85025; 85027; 85652; 86308; 86666; 87015; 87040; 87070; 87086; 87207; 87491; 87591; 87811; 87880; 93005; 96374; 96375; 99284